=== PATIENT | male | born 1965 | race Caucasian/White ===

== ENCOUNTER 2025-07-17 19:07 | Emergency (ER) | payer MEDICAID ==
[~2025-07-17] VITALS: Ht 170.2 cm; Wt 89.0 kg
[2025-07-17 19:13] VITALS: O2SAT 100
[2025-07-17 21:48] LABS: INFLUENZA TYPE A Presumptive Negative (Pres. Neg.)
[2025-07-17 21:49] LABS: INFLUENZA TYPE B Presumptive Negative (Pres. Neg.)
[2025-07-17 21:50] LABS: RESPIRATORY SYNCYTIAL VIRUS Not Detected (Not Detectd)
[2025-07-17] MEDS ORDERED: BENZ100C86 MT (21:51)
[2025-07-17] MEDS ORDERED: IBUP-2437 MT (21:51)
[2025-07-17 22:03] VITALS: BP 122/79; PULSE 58; RESP 14; TEMP 37.1; O2SAT 100
== END 2025-07-17 22:10 | disposition home or self-care (01) ==
LOC: ER 19:07
DX: B34.9 Viral infection, unspecified (principal); M25.532 Pain in left wrist; M79.642 Pain in left hand; R05.9 Cough, unspecified; I10 Essential (primary) hypertension; Z20.822 Contact with and (suspected) exposure to COVID-19
CPT/HCPCS: 71045; 73100; 73120; 87420; 87426; 87804; 99284